=== PATIENT | male | born 1955 | race Caucasian/White ===

== ENCOUNTER 2018-10-12 12:23 | Emergency (ER) | payer OTHER ==
[2018-10-12] MEDS ORDERED: Diphtheria,Pertussis(Acell),Tetanus Vaccine 0.5 ML SDV IM ONE (14:46)
--- NOTE | 2018-10-12 14:53 | EDM.PDOC ---
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 No LOC. Was dizzy, this resolved. Complains of headache, no neck pain. Onset: Today Location: Reports: Head Severity: Moderate Past Medical History Cardiovascular History: Reports: Hypertension Musculoskeletal History: Reports: Other (See Below) (chronic pain) Social & Family History - Tobacco Use Smoking Status *Q: Former Smoker - Alcohol Use Alcohol Use History: Yes Alcohol Use in Last Twelve Months: Yes Alcohol Use Frequency: Socially ED ROS GENERAL - Review of Systems Review Of Systems: ROS reveals no pertinent complaints other than HPI. ED EXAM, SKIN/RASH Exam: See Below Exam Limited By: No Limitations General Appearance: Alert, WD/WN, No Apparent Distress Eye Exam: Bilateral Eye: EOMI, PERRL Ears: Normal External Exam Nose: Normal Inspection Throat/Mouth: No Airway Compromise Head: Other (1.5 cm left forehead laceration) Neck: Normal Inspection, Non-Tender Respiratory/Chest: No Respiratory Distress Extremities: Normal Inspection Neurological: Alert, Normal Cognition, No Motor/Sensory Deficits Psychiatric: Normal Affect, Normal Mood ED SKIN PROCEDURES - Laceration/Wound Repair Forehead Appearance: Subcutaneous, Clean Distal NVT: Neuro & Vascular Intact Skin Prep: Chlorhexidine (Hibiciens) Exploration/Debridement/Repair: No Foreign Material Found Closed with: Wound Adhesive Lac/Wound length In cm: 1.5 Course - Vital Signs Last Recorded V/S: Last Vital Signs Temp 36.8 C 10/12/18 12:23 Pulse 57 L 10/12/18 12:23 Resp 18 10/12/18 12:23 BP 148/81 H 10/12/18 12:23 Pulse Ox 92 L 10/12/18 12:23 - Orders/Labs/Meds Orders: Active Orders 24 hr Category Date Time Status Vaccines to be Administered [RC] PER UNIT ROUTINE Care 10/12/18 14:46 Active Cervical Spine wo Cont [CT] Stat Exams 10/12/18 12:34 Taken Head wo Cont [CT] Stat Exams 10/12/18 12:34 Taken Meds: Medications Discontinued Medications Generic Name Dose Route Start Last Admin Trade Name Anish PRN Reason Stop Dose Admin Diphtheria/Tetanus/Acell Pertussis 0.5 ml 10/12/18 14:46 Adacel IM 10/12/18 14:47 .ONCE ONE - Radiology Interpretation Free Text/Narrative:: Head and C-spine CT: No acute process. Departure - Departure Time of Disposition: 15:09 Disposition: Home, Self-Care 01 Condition: Good Clinical Impression: Minor head injury Qualifiers: Encounter type: initial encounter Qualified Code(s): S09.90XA - Unspecified injury of head, initial encounter Forehead laceration Qualifiers: Encounter type: initial encounter Qualified Code(s): S01.81XA - Laceration without foreign body of other part of head, initial encounter - Discharge Information *PRESCRIPTION DRUG MONITORING PROGRAM REVIEWED*: No *COPY OF PRESCRIPTION DRUG MONITORING REPORT IN PATIENT LELO: Not Applicable Instructions: Laceration Care, Adult, [id number], Stitches, [place], or Adhesive Wound Closure, Head Injury, Adult, [id number] Referrals: PCP,None [Primary Care Provider] - Forms: ED Department Discharge Additional Instructions: Follow up with symptoms or signs of infection or with increased headache, vomiting or altered mental status. - My Orders Last 24 Hours: My Active Orders 10/12/18 12:34 Cervical Spine wo Cont [CT] Stat Head wo Cont [CT] Stat 10/12/18 14:46 Vaccines to be Administered [RC] PER UNIT ROUTINE - Assessment/Plan Last 24 Hours: My Active Orders 10/12/18 12:34 Cervical Spine wo Cont [CT] Stat Head wo Cont [CT] Stat 10/12/18 14:46 Vaccines to be Administered [RC] PER UNIT ROUTINE
== END 2018-10-12 15:37 | disposition home or self-care (01) ==
LOC: FB.ED 12:23
DX: S01.01XA Laceration without foreign body of scalp, initial encounter (principal); Z23 Encounter for immunization; I10 Essential (primary) hypertension; Z87.891 Personal history of nicotine dependence; W20.8XXA Other cause of strike by thrown, projected or falling object, initial encounter
CPT/HCPCS: 12011; 70450; 72125; 90471; 90715; 99283-25